=== PATIENT | female | born 1980 | race Caucasian/White ===

== ENCOUNTER 2018-11-06 07:55 | Emergency (ER) | payer MEDICAID ==
[~2018-11-06] VITALS: Ht 160 cm; Wt 78.6 kg
[~2018-11-06 07:55] MED LIST: ALBU8.5H5 INH; ALBU8.5H8 INH; D-ME118S6 PO; GUAI120S25 PO; IPRA14.76; PRED20TA PO
[2018-11-06 08:00] VITALS: Ht 160 cm; Wt 78.6 kg
[2018-11-06] MEDS ORDERED: LIDOCAINE/MYLANTA 40 ML BTL PO STA (09:17)
[2018-11-06] MEDS ORDERED: KETOROLAC 15 MG INJ IV STA (09:17)
[2018-11-06] MEDS ORDERED: BELLADONNA/PHENOBARBITAL TAB PO STA (09:17)
[2018-11-06] MEDS ORDERED: ONDANSETRON 4 MG INJ IV STA (09:17)
[2018-11-06] MEDS ORDERED: FAMOTIDINE 20 MG TAB PO STA (09:17)
[2018-11-06] MEDS ORDERED: SOD CHLORIDE 0.9% 1,000 ML IV STA (09:17)
[2018-11-06] MEDS ORDERED: CEFTRIAXONE 1 GM/50 ML (PMX) 50 ML IVPB ONE (10:30)
[2018-11-06] MEDS ORDERED: CEPH-443 PO (11:07)
[2018-11-06] MEDS ORDERED: ONDA4TAB14 PO (11:07)
[2018-11-06 11:32] VITALS: BP 105/65; PULSE 79; RESP 18
--- NOTE | 2018-11-06 12:40 | ERD ---
ER Documentation Chief Complaint Chief Complaint VOMITING/DIARRHEA , ONSET 0300 AM HPI This is a 38-year-old woman complaining of a couple episodes of clear nonbloody nonbilious emesis and loose stools beginning early this morning with diffuse abdominal cramping. She denies fevers or chills, no back pain, no chest pain or shortness of breath, no URI symptoms. Patient denies recent travel or antibiotic use. ROS All systems reviewed and are negative except as per history of present illness. Medications Home Meds Active Scripts Cephalexin* (Keflex*) 500 Mg Capsule, 500 MG PO QID for 5 Days, CAP Prov:DARWIN FELDMAN MD 11/06/18 Ondansetron (Ondansetron Odt) 4 Mg Tab.rapdis, 4 MG PO Q6H PRN for NAUSEA AND/OR VOMITING, #10 TAB Prov:DARWIN FELDAMN MD 11/06/18 Albuterol Sulfate* (Proair HFA*) 8.5 Gm Hfa.aer.ad, 2 PUFF INH Q4, #1 INHALER Prov:MARIXA WOOD 02/09/16 Dextromethorphan Hb-Promethazine Hcl (Promethazine DM Syrup) 180 Ml Syrup, 5 ML PO Q6H PRN for COUGH, #4 OZ Prov:MARIXA WOOD 02/09/16 Prednisone* (Prednisone*) 20 Mg Tab, 40 MG PO DAILY for 4 Days, TAB Prov:MARIXA WOOD 02/09/16 Cvtwxxsmwfn-L-Upsvqhodvt Hb* (Guaifenesin* DM Syrup) 120 Ml Syrup, 10 ML PO Q4H PRN for COUGH, #1 BOTTLE Prov:DUNCAN PARRISH NP 02/01/15 Albuterol Sulfate* (Albuterol Sulfate* HFA) 8.5 Gm Hfa.aer.ad, 1-2 PUFF INH Q4 PRN for SHORTNESS OF BREATH, #1 EA Prov:DUNCAN PARRISH NP 02/01/15 Reported Medications Albuterol/Ipratropium (Combivent) 14.7 Gm Inha 01/10/11 Allergies Allergies: Coded Allergies: No Known Allergy (Verified , 02/01/15) PMhx/Soc Asthma History of Surgery: No Anesthesia Reaction: No Hx Neurological Disorder: No Hx Respiratory Disorders: Yes (ASTHMA) Hx Cardiac Disorders: No Hx Psychiatric Problems: No Hx Miscellaneous Medical Probl: Yes (asthma) Hx Alcohol Use: No Hx Substance Use: Yes (PAST- METH) Hx Tobacco Use: No Smoking Status: Former smoker FmHx Family History: No diabetes Physical Exam Vitals Vital Signs Date Temp Pulse Resp B/P (MAP) Pulse Ox O2 O2 Flow FiO2 Time Delivery Rate 11/06/18 98.1 79 18 105/65 99 Room Air 11:32 (78) 11/06/18 98.1 88 18 115/65 99 08:00 (82) Physical Exam GENERAL: Well-developed, well-nourished, well-hydrated, appears nauseous, a febrile HEENT: Moist mucous membranes, pink conjunctiva, no cervical spine tenderness or step-off deformities, no goiter, no jaundice or icterus, extraocular movements intact without pain. No submandibular induration, and no pharyngeal erythema CARDIAC: Regular rate and rhythm, no murmurs rubs or gallops LUNGS: Clear bilaterally no wheezing crackles or stridor ABDOMEN: Soft nontender, no guarding, no rigidity, no rebound, no psoas sign no obturator sign. SKIN: Warm and dry to touch, no abrasions, contusions, or hematomas, no lacerations, no ecchymosis, no target lesions, and without ulcers EXTREMITIES: No clubbing cyanosis or edema, calves are bilaterally symmetrical, no Homans sign, no popliteal cord sign. Distal pulses equal and bilateral Result Diagram: 11/06/1834 11/06/18933 Results 24 hrs Laboratory Tests Test 11/06/18 09:33 11/06/18 09:34 POC Beta HCG, Qualitative NEGATIVE White Blood Count 13.6 10^3/ul Red Blood Count 5.46 10^6/ul Hemoglobin 15.6 g/dl Hematocrit 45.6 % Mean Corpuscular Volume 83.5 fl Mean Corpuscular Hemoglobin 28.6 pg Mean Corpuscular Hemoglobin Concent 34.2 g/dl Red Cell Distribution Width 12.5 % Platelet Count 234 10^3/UL Mean Platelet Volume 11.2 fl Immature Granulocytes % 0.400 % Neutrophils % 90.7 % Lymphocytes % 5.2 % Monocytes % 2.6 % Eosinophils % 0.9 % Basophils % 0.2 % Nucleated Red Blood Cells % 0.0 /100WBC Immature Granulocytes # 0.050 10^3/ul Neutrophils # 12.3 10^3/ul Lymphocytes # 0.7 10^3/ul Monocytes # 0.4 10^3/ul Eosinophils # 0.1 10^3/ul Basophils # 0.0 10^3/ul Nucleated Red Blood Cells # 0.0 10^3/ul Urine Color YELLOW Urine Clarity TURBID Urine pH 5.0 Urine Specific Blaine 1.032 Urine Ketones NEGATIVE mg/dL Urine Nitrite NEGATIVE mg/dL Urine Bilirubin NEGATIVE mg/dL Urine Urobilinogen NEGATIVE mg/dL Urine Leukocyte Esterase TRACE Roman/ul Urine Microscopic RBC 6 /HPF Urine Microscopic WBC 137 /HPF Urine Squamous Epithelial Cells FEW /HPF Urine Bacteria FEW /HPF Urine Mucus MODERATE /HPF Urine Hemoglobin 1+ mg/dL Urine Glucose NEGATIVE mg/dL Urine Total Protein NEGATIVE mg/dl Sodium Level 142 mmol/L Potassium Level 4.5 mmol/L Chloride Level 106 mmol/L Carbon Dioxide Level 23 mmol/L Anion Gap 13 Blood Urea Nitrogen 18 mg/dl Creatinine 0.45 mg/dl Est Glomerular Filtrat Rate mL/min > 60 mL/min Glucose Level 148 mg/dl Calcium Level 9.7 mg/dl Total Bilirubin 1.2 mg/dl Direct Bilirubin 0.00 mg/dl Indirect Bilirubin 1.2 mg/dl Aspartate Amino Transf (AST/SGOT) 28 IU/L Alanine Aminotransferase (ALT/SGPT) 33 IU/L Alkaline Phosphatase 94 IU/L Total Protein 8.7 g/dl Albumin 4.9 g/dl Globulin 3.80 g/dl Albumin/Globulin Ratio 1.28 Lipase 33 U/L Current Medications Medications Dose Sig/Jonna Start Time Status Last (Trade) Ordered Route PRN Stop Time Admin Dose Reason Admin Sodium 1,000 ml @ Q1H STAT 11/06/18 DC 11/06/18 Chloride 1,000 mls/hr IV 09:17 09:44 11/06/18 10:16 Ondansetron 4 mg ONCE STAT 11/06/18 DC 11/06/18 HCl (Zofran IV 09:17 09:45 Inj) 11/06/18 09:18 Famotidine 20 mg ONCE STAT 11/06/18 DC 11/06/18 (Pepcid) PO 09:17 09:45 11/06/18 09:18 40 ml ONCE STAT 11/06/18 DC 11/06/18 Miscellaneous PO 09:17 09:45 Medication 11/06/18 09:18 (Gi Cocktail (2)) Belladonna/ 2 tab ONCE STAT 11/06/18 DC 11/06/18 Phenobarbital PO 09:17 09:45 () 11/06/18 09:18 Ketorolac 15 mg ONCE STAT 11/06/18 DC 11/06/18 Tromethamine IV 09:17 09:45 (Toradol) 11/06/18 09:18 Ceftriaxone 50 ml @ ONCE ONCE 11/06/18 DC 11/06/18 Sodium 100 mls/hr IVPB 10:30 10:41 11/06/18 10:59 Procedures/MDM IV line was established patient was placed on ekg monitor rhythm strip revealed a sinus rhythm at about 80 bpm with upright P and T waves. Patient was afebrile Administer 1 L normal saline IV, Zofran 4 mg IV, Toradol 15 mg IV, GI cocktail p.o., and famotidine 20 mg p.o. Urine analysis was positive for infection I treated her here with ceftriaxone 1 g IV. CBC reveals mild leukocytosis, electrolytes revealed mild dehydration, liver function tests were normal Patient feels much better and symptoms have resolved, vital signs are normal. Differential diagnoses considered, included but not limited to acute coronary syndrome, pulmonary embolism, aortic dissection, abdominal aortic aneurysm, sepsis, stroke, meningitis, encephalitis, pneumonia, appendicitis, cholecystitis, bowel obstruction, pyelonephritis, nephrolithiasis, cystitis, as well as metabolic, hematologic, and electrolyte abnormalities. As well as abscess, cellulitis, fractures, and dislocations. Patient feels much better at this time, and vital signs are normal, symptoms have improved. I did give strict instructions to return to the ED if symptoms continue or worsen, patient will otherwise follow-up with primary care physician. Patient understood instructions and agreed to plan. Disclaimer: Inadvertent spelling and grammatical errors are likely due to EHR/dictation software use and do not reflect on the overall quality of patient care. Also, please note that the electronic time recorded on this note does not necessarily reflect the actual time of the patient encounter. Departure Diagnosis: Primary Impression: Cystitis Additional Impression: Vomiting and diarrhea Condition: Good Patient Instructions: Bladder Infection, Female (Adult), Vomiting And Diarrhea, Nonspecific (Adult) DARWIN FELDMAN MD Nov 06, 2018 12:40
== END 2018-11-06 11:34 | disposition home or self-care (01) ==
LOC: FTE 07:55
DX: N30.90 Cystitis, unspecified without hematuria (principal); J45.909 Unspecified asthma, uncomplicated; R19.7 Diarrhea, unspecified; Z87.891 Personal history of nicotine dependence
CPT/HCPCS: 36415; 80053; 81001; 81025; 83690; 85025; 96361; 96374; 96375; J0696; J1885; J2405; J7030; Z7502; Z7610